=== PATIENT | female | born 1980 | race American Indian/Alaskan Native ===

== ENCOUNTER 2017-10-06 05:06 | Emergency (ER) | payer MEDICAID ==
[2017-10-06 06:16] VITALS: BP 119/76
[2017-10-06 06:56] LABS: Basophils % (Auto) 0.2 % (0.0-1.8); Eosinophils # (Auto) 0.1 K/mm3 (0.0-0.4); Eosinophils % (Auto) 0.4 % (0.0-4.3); Hematocrit 39.2 % (30.3-42.9); Hemoglobin 12.7 gm/dl (10.1-14.3); Lymphocytes # (Auto) 2.2 K/mm3 (1.2-5.4); Mean Corpuscular HGB Conc 32 % (30-34); Mean Corpuscular Hemoglobin 29 pg (28-32); Mean Corpuscular Volume 89 fl (79-97); Monocytes # (Auto) 0.5 K/mm3 (0.0-0.8); Monocytes % (Auto) 4.5 % (0.0-7.3); Platelet Count 293 K/mm3 (140-440); Red Blood Count 4.39 M/mm3 (3.65-5.03); Red Cell Distribution Width 14.4 % (13.2-15.2)
== END 2017-10-06 08:14 | disposition left against medical advice (07) ==
LOC: ED 05:06
DX: N93.9 Abnormal uterine and vaginal bleeding, unspecified (principal); Z53.21 Procedure and treatment not carried out due to patient leaving prior to being seen by health care provider
CPT/HCPCS: 36415; 84702; 85025; 86850; 86900; 86901

== ENCOUNTER 2017-10-16 06:19 | Day surgery (SDC) | payer MEDICAID ==
--- NOTE | 2017-10-16 07:18 | Anesthesia Consultation ---
Anesthesia Consult and Med Hx Date of service: 10/16/17 - Airway Anesthetic Teeth Evaluation: Good ROM Head & Neck: Adequate Mental/Hyoid Distance: Adequate Mallampati Class: Class II Intubation Access Assessment: Probably Good - Pulmonary Exam CTA: Yes - Cardiac Exam Cardiac Exam: RRR - Pre-Operative Health Status ASA Pre-Surgery Classification: ASA2 Proposed Anesthetic Plan: General - Pulmonary Hx Smoking: No Hx Asthma: No COPD: No Hx Pneumonia: No - Cardiovascular System Hx Hypertension: No Hx Coronary Artery Disease: No Hx Heart Attack/AMI: No Hx Angina: No - Central Nervous System Hx Seizures: No Hx Psychiatric Problems: Yes - Endocrine Hx Renal Disease: No Hx End Stage Renal Disease: No Hx Hypothyroidism: No Hx Hyperthyroidism: No - Hematic Hx Anemia: Yes (WITH ) Hx Sickle Cell Disease: No - Other Systems Hx Alcohol Use: Yes (RARELY) Hx Cancer: No
[2017-10-16] MEDS ORDERED: PERCOCET 5/325 PO PRN (07:19)
--- NOTE | 2017-10-16 07:19 | Anesthesia Day of Surgery ---
Anesthesia Day of Surgery - Day of Surgery Patient Examined: Yes Patient H&P Reviewed: Yes Patient is NPO: Yes
[2017-10-16] MEDS ORDERED: NACL BACTERIOSTATIC INFILTRATI ONE (07:20)
[2017-10-16] MEDS ORDERED: DECADRON IV NR (07:30)
[2017-10-16] MEDS ORDERED: VERSED IV PRN (07:30)
[2017-10-16] MEDS ORDERED: ZOFRAN IV PRN (07:30)
[2017-10-16] MEDS ORDERED: SILVER NITRATE TP ONE (07:32)
[2017-10-16] MEDS ORDERED: METHERGINE IM ONE (07:32)
[2017-10-16 07:40] LABS: Hematocrit 39.6 % (30.3-42.9); Hemoglobin 13.1 gm/dl (10.1-14.3)
[2017-10-16] MEDS ORDERED: TRANSDERM-SCOP TD NR (08:00)
[2017-10-16] MEDS ORDERED: ANCEF/STERILE WATER 2 GM/20 ML IV NR (08:00)
[2017-10-16] MEDS ORDERED: TORADOL IV PRN (08:00)
[2017-10-16] MEDS ORDERED: PEPCID IV NR (08:00)
[2017-10-16] MEDS ORDERED: LACTATED RINGERS 1,000 ML IV SCH (08:00)
[2017-10-16] MEDS ORDERED: DIPRIVAN 10 MG/ML IV ONE (08:03)
[2017-10-16] MEDS ORDERED: SUBLIMAZE ONE (08:03)
[2017-10-16] MEDS ORDERED: XYLOCAINE MPF 2% ONE (08:03)
--- NOTE | 2017-10-16 08:14 | Short Stay Summary ---
Short Stay Documentation Date of service: 10/16/17 Narrative H&P: Pt is a 37yo BF LMP 08/05/17 presented from the [facility] ER complaining of vaginal bleeding. [facility] was [id number] on 10/06/17 and pelvic u/s showed an enlarged uterus with retained POC. She is therefore scheduled for a D&C. - History Principal diagnosis: Incomplete H&P: obtained from office Past Medical History: No medical history Past Surgical History: Social history: no significant social history, single - Allergies and Medications Current Medications: Allergies codeine Allergy (Severe, Verified 04/18/13 02:40) Anaphylaxis acetaminophen [From Tylenol] Allergy (Verified 04/18/13 02:40) Unknown aspirin Allergy (Verified 04/18/13 02:40) Unknown Home Medications Medication Instructions Recorded Confirmed Last Taken Type Ibuprofen [Motrin 800 MG tab] 800 mg PO Q8HR PRN #30 tablet 11/12/14 10/16/17 1 Week Ago Rx ~10/09/17 Active Medications Cefazolin Sodium (Ancef/Sterile Water 2 Gm/20 Ml) 2 gm IV PREOP NR Stop: 10/16/17 23:59 Dexamethasone (Decadron) 4 mg IV PREOP NR Stop: 10/16/17 21:00 Last Admin: 10/16/17 07:38 Dose: 4 mg Famotidine (Pepcid) 20 mg IV PREOP NR Stop: 10/16/17 21:00 Last Admin: 10/16/17 07:41 Dose: 20 mg Hydromorphone HCl (Dilaudid) 0.5 mg IV Q10MIN PRN PRN Reason: Pain , Severe (7-10) Stop: 10/16/17 12:30 Lactated Ringer's (Lactated Ringers) 1,000 mls @ 42 mls/hr IV DIRECT BREANNA Last Admin: 10/16/17 07:38 Dose: 42 mls/hr Ketorolac Tromethamine (Toradol) 30 mg IV ONCE PRN PRN Reason: Pain, Moderate (4-6) Stop: 10/16/17 14:00 Midazolam HCl (Versed) 2 mg IV PREOP PRN PRN Reason: Anxiety Stop: 10/16/17 21:00 Ondansetron HCl (Zofran) 4 mg IV ONCE PRN PRN Reason: Nausea And Vomiting Stop: 10/16/17 21:00 Scopolamine (Transderm-Scop) 1 each TD PREOP NR Stop: 10/16/17 21:00 Last Admin: 10/16/17 07:35 Dose: 1 each - Physical exam General appearance: no acute distress Integumentary: no rash HEENT: Atraumatic Lungs: Clear to auscultation Breasts: deferred Heart: Regular rate Gastrointestinal: normal Female Genitourinary: deferred Rectal Exam: deferred Extremities: no ischemia, No edema Neurological: Normal gait, Normal speech - Brief post op/procedure progress note Date of procedure: 10/16/17 Pre-op diagnosis: Retained products of conception Post-op diagnosis: same Procedure: D&C Anesthesia: MAC Findings: An 8-10 weeks size uterus with scant POC Surgeon: BLAINE AWAN Estimated blood loss: 50-100ml Pathology: list (POC) Specimen disposition: to lab Condition: stable - Hospital course Hospital course: Unremarkable. - Disposition Condition at discharge: Good Disposition: [id number] TO HOME OR SELFCARE - Discharge Diagnoses (1) Retained placental fragment Status: Resolved (2) Missed Status: Resolved Short Stay Discharge Plan Activity: no restrictions Diet: regular Follow up with: PRIMARY CARE, [Primary Care Provider] - 7 Days BLAINE AWAN MD [Staff Physician] - 14 Days Prescriptions: Doxycycline [Vibramycin CAP] 100 mg PO Q12HR #14 capsule Ibuprofen [Motrin] 800 mg PO Q8HR PRN #30 tablet PRN Reason: Pain, Moderate (4-6) Methylergonovine [Methergine] 0.2 mg PO Q8HR #6 tablet
[2017-10-16] MEDS ORDERED: ZOFRAN ONE (08:46)
[2017-10-16] MEDS ORDERED: DECADRON ONE (08:52)
--- NOTE | 2017-10-16 09:11 | Operative Report ---
Operative Report Operative Report: PREOPERATIVE DIAGNOSIS: 1. Retained products of conception 2. Incomplete POSTOPERATIVE DIAGNOSIS: Same OPERATIVE PROCEDURE: Dilatation and curettage. SURGEON: Timothy Barfield MD ANESTHESIA: Gen. mask ANESTHESIOLOGIST: Dr. Vang ESTIMATED BLOOD LOSS: 50 mL's FINDINGS: An 8-10 week size uterus with scant products of conception COMPLICATIONS: None COUNTS: Correct x3. PROCEDURE: After the patient was correctly identified as the patient, and after general anesthesia was administered, the patient was prepped and draped in the usual sterile fashion and placed in dorsal lithotomy position. First, the bladder was emptied using a straight catheter. Next, a speculum was placed in the vaginal vault and the anterior lip of the cervix was grasped using a single-tooth tenaculum. The uterus was sounded to 10 cm. The cervical os was sequentially dilated, and a 10 mm vaccurette was used to suction blood and products of conception from the uterine cavity. After all the products of conception were removed, the procedure was considered complete. All instruments were removed from the vagina. The patient tolerated the procedure well and was transferred to the recovery room in stable condition.
[2017-10-16] MEDS: DILAUDID IV PRN ×2 (09:20→09:30)
[2017-10-16] MEDS ORDERED: PHENERGAN PO SCH (11:20)
[2017-10-16 11:41] VITALS: BP 103/64
--- NOTE | 2017-10-19 05:57 | Post Anesthesia Evaluation ---
- Post Anesthesia Evaluation Patient Participated: Yes Airway Patent: Yes Stable Respiratory Function: Yes Nausea/Vomiting: No Temp > 96.8F: Yes Pain Manageable: Yes Adequeate Hydration: Yes Anesthesia Complications: No Block Receding Appropriately: Not Applicable Patient on Ventilator: No
== END 2017-10-16 11:25 | disposition home or self-care (01) ==
LOC: OR 06:19
PROVIDERS: ATTEND Obstetrics & Gynecology
DX: O03.4 Incomplete spontaneous abortion without complication (principal); Z88.5 Allergy status to narcotic agent; Z98.890 Other specified postprocedural states
CPT/HCPCS: 36415; 58120; 85014; 85018; 88305; J0690; J1100; J1170; J2405; J2704; J3010; J7120; J2210; Q0169